=== PATIENT | female | born 1945 | race Caucasian/White ===

== ENCOUNTER → 2016-11-26 | Outpatient (CLI) | payer OTHER ==
[~2016-11-26] MED LIST: ADIPEX-P37.5 M1 PO; AUGMENTIN 875875 MG PO; CELEBREX 200 M200 M1 PO; CELEBREX 200 M200 MG PO; DICLOFENAC SODI75 MG PO; FENTANYL PA12 MCG/HR TP; FENTANYL PA25 MCG/HR TP; FENTANYL PA25 MCG/HR TRANSDERM; FENTANYL PA50 MCG/HR TP; FENTANYL PA50 MCG/HR TRANSDERM; GLUCOSAMINE PO; HYDROCODONE-AP1 EAC6 PO; MEDROLDOSEPACK PO; MOBIC7.5 M1 PO; OXYCODONE HCL 55 MG PO; PHENTERMINE H37.5 MG PO; PROMETHAZINE V180 ML PO; PROZAC40 MG PO; ROXICODONE5 MG PO; WELLBUTRIN SR150 MG PO; WELLBUTRIN XL300 MG PO; ZPAK PO
[2016-11-26 13:58] LABS: ABG SAMPLE TYPE ARTERIAL; BE(vivo) 1.5 mmol/L (-2 to +3); HCO3 25.3 mmol/L (22.0-26.0); LACTATE 0.96 mmol/L (0.5-2.0); O2(CT) 19.1 mL/dL (15.0-23.0); O2Hb 94.8 % (92.0-98.0); PCO2 37.4 mmHg (35.0-45.0); PO2 79.7 mmHg (80.0-100.0); STICK SITE R.RADIAL; pH 7.448 (7.360-7.450); sO2 96.3 % (92.0-98.0); tCO2 26.4 mmol/L (24.0-30.0)
[2016-11-26 13:59] LABS: ABG COMMENT NO COMPLICATIONS.
== END ==
LOC: PUL 13:34
PROVIDERS: Internal Medicine Pulmonary Disease
DX: R06.02 Shortness of breath (principal)

== ENCOUNTER → 2016-12-10 | Outpatient (CLI) | payer OTHER ==
--- NOTE | ~2016-12-10 | SLE ---
[facility] [address] [place] [address] POLYSOMNOGRAPHY STUDY Name: CONCHIS SANTO Room #: REG [facility] M..#: [id number] Admission: 12/10/16 Attend Phys: Jenna Roca MD Discharge: Date of : 47 Report #: [id number] THIS REPORT FOR: //name// CC: Autumn Mitchell MD DATE OF SERVICE: 12/25/2016 A 71-year-old, height 5 feet 3, weight 195 pounds. Usually gets out of bed 47 a.m. goes to bed at 11:00 p.m., positive snoring and daytime somnolence. COMMENTS: SLEEP SUMMARY: Total sleep time 470 minutes. Sleep efficiency 89%. Sleep latency 20 minutes, REM latency 130 minutes. SLEEP STAGE: 1-1%, 2-78, REM-21%. RESPIRATORY SUMMARY: Central apnea 4, obstructive apnea 0, hypopnea 106. Apnea-hypopnea index of 16 events per sleep hour. Supine AHI 27 right lateral 3 events per sleep hour. Periodic limb movement with arousal index of 1.6 events per sleep hour. Low oxygen saturation 83%, spending 2% of recording time less than 90%. IMPRESSION: 1. Obstructive sleep apnea/hypopnea, G47.33. 2. Periodic limb movement with arousal index of 2 events per sleep hour. 3. The patient relates slept better in morning questionnaire further discussion regarding sleep hygiene is recommended. 4. No significant arrhythmia noted. SUGGESTIONS: 1. In addition to specific therapy, the patient should be cautioned regarding driving or operating dangerous machinery unless fully alert. The patient should be cautioned regarding the use of respiratory depressants. 2. TSH and weight loss per Dr. Mitchell. 3. Oral appliance or appropriate surgery may be considered with appropriate followup. 4. A CPAP titration night or if indicated an auto titrating CPAP at home may be considered. 5. If signs and symptoms not improved with therapy, further evaluation recommended. Please do not hesitate to contact me if I may be of further assistance. <ELECTRONICALLY SIGNED> By: Jenna Roca MD 12/29/166 31 47 Jenna Roca MD /nt
== END ==
LOC: SLEEPLAB 08:43
DX: G47.33 Obstructive sleep apnea (adult) (pediatric) (principal)

== ENCOUNTER → 2017-06-09 | Outpatient (CLI) | payer OTHER ==
--- NOTE | ~2017-06-09 | EKG ---
[place] [address] [facility] [place] [address] ELECTROCARDIOGRAM REPORT Name: HANSACONCHIS CARDENAS [id number] Admission: 06/09/17 Attend Phys: Autumn Cade DNP Discharge: Date of : 47 Report #: [id number] THIS REPORT FOR: //name// [facility] Test Date: 2017-06-09 Test Time: 13:30:53 Pat Name: CONCHIS SANTO Department: Room: Gender: [employer] Pl[employer] Technician: Margarito VALVERDE : 1945 Requested By: Autumn Cade Order Number: [id number] MD: Adriel Duenas Measurements Intervals Lund Rate: 78 P: 62 KS: 180 QRS: -34 QRSD: 101 T: 63 QT: 412 QTc: 470 Interpretive Statements Sinus rhythm Left axis deviation Abnormal R-wave progression, early transition No previous ECG available for comparison Electronically Signed On 06-11-2017 6:59:02 CDT by Adriel Duenas [email or web address] <ELECTRONICALLY SIGNED> By: Adriel Duenas MD, [facility] 06/11/17 0659 1330 1330 Adriel Duenas MD, FACC /EPI
== END ==
LOC: CV 13:03
DX: Z01.818 Encounter for other preprocedural examination (principal)

== ENCOUNTER → 2017-09-16 | Outpatient (CLI) | payer OTHER | LOC: RAD 16:45 | DX: M75.91 Shoulder lesion, unspecified, right shoulder (principal) ==

== ENCOUNTER → 2017-10-28 | Outpatient (CLI) | payer OTHER ==
[~2017-10-28] VITALS: Ht 162.6 cm; Wt 97.1 kg
[~2017-10-28] MED LIST changes: +CELEXA40 MG PO; +MYRBETRIQ50 MG PO; +TYLENOL PM EX-1 EACH PO
--- NOTE | ~2017-10-28 | HPC ---
[facility] [address] [place] [address] PAIN MANAGEMENT CONSULTATION Name: CONCHIS SANTO Room #: REG [facility] MFannie.#: [id number] Admission: 10/28/17 Attend Phys: Rl Jasmine DO Discharge: Date of : 47 Report #: [id number] THIS REPORT FOR: //name// CC: Rl WELSH MD DATE OF SERVICE: 10/28/2017 REFERRING PHYSICIAN: Armando Welsh M.D. CHIEF COMPLAINT: Low back pain, left lower extremity pain with paresthesias. HISTORY OF PRESENT ILLNESS: As you know, the patient is a very pleasant 72-year-old female who returns today in followup visit with slowly recurring low back pain, left lower extremity pain with paresthesias. The patient did very well with previous epidural injection reporting 90% improvement in pain lasting for nearly 9 months. She has had a slow and progressive return of symptoms, no inciting injury or trauma. She returns requesting next in a series of epidural injections. ALLERGIES: No known drug allergies. CURRENT MEDICATIONS: Myrbetriq, citalopram, Tylenol PM, celecoxib. SOCIAL HISTORY: The patient denies tobacco, alcohol, IV or illicit drug use. She is retired, retired years ago. She is unaccompanied today. IMAGING: No new imaging available. PHYSICAL EXAMINATION: VITAL SIGNS: Blood pressure 144/80, pulse 73, respiratory rate 16, unlabored. The patient is 95% on room air. Height 5 feet 4 inches tall, weight 214 pounds, BMI calculated 36.7. GENERAL: Well-developed, well-nourished, well-hydrated exogenously obese 72-year-old female appearing her stated age. She is placing current pain score at approximately 4/10. HEENT: Normocephalic, atraumatic. Extraocular muscles appear intact. Prosthetic right eye is noted. EXTREMITIES: Show no clubbing, no cyanosis, no edema. MUSCULOSKELETAL: Seated straight leg raising negative. Supine straight leg raising is positive on the left with S1 distribution. Santi test negative. Modified Gaenslen's positive for axial low back pain. Ankle clonus negative. Babinski is negative. Muscle bulk and tone equal and symmetrical in lower extremities. [address] [address] PAIN MANAGEMENT CONSULTATION Name: CONCHIS SANTO [facility] Room #: REG [facility] Chantell#: [id number] Admission: 10/28/17 Attend Phys: Rl Jasmine DO Discharge: Date of : 47 Report #: [id number] ASSESSMENT: 1. Symptomatic lumbar radiculopathy. 2. Spinal stenosis of the lumbar spine. 3. Neural foraminal stenosis of the lumbar spine. 4. Displacement of lumbar intervertebral disk with radiculopathy. 5. Lumbosacral spondylosis with radiculopathy. 6. Lumbar degeneration. 7. Chronic intractable pain. PLAN: 1. The patient returns today in followup visit having indicated 90% improvement in overall pain for her lumbar radicular symptoms involving the S1 nerve root on the left with previous epidural injection. She returns today requesting next in a series of epidural injections. The patient was advised that third libertarian payer restrictions require that authorization be obtained before she could undergo the next in a series of epidural injections. Authorization could take anywhere from 4-7 working days. We will begin the process immediately, contact the patient once this has been completed, have her return to undergo epidural injection under fluoroscopic guidance as she has noted significant improvement in symptoms. Again, 90% improvement in overall pain with the epidural injection at our last visit lasting for nearly 9 months. She has been able to successfully wean off all opioids after undergoing this epidural injection and had returned to all activities of daily living until just recently where she has slow and progressive return of symptoms. We are hopeful to have the approval of this injection quite quickly, so that she can undergo the procedure and return to her normal activities. 2. No medication changes were made at today's visit. The patient to continue current medical therapy. 3. We will see the patient back in followup visit once we have received precertification to undergo a L5-S1 left paramedian epidural steroid injection under fluoroscopic guidance, which was successful with 90% improvement in overall pain for 9 months at the visit of 09/10/2016. <ELECTRONICALLY SIGNED> By: Rl Jasmine DO 11/05/17 1214 1013 1339 Rl Jasmine DO /nt
[2017-10-28 09:27] VITALS: BP 144/80
== END ==
LOC: PAIN 06:18
DX: M47.27 Other spondylosis with radiculopathy, lumbosacral region (principal); M48.061 Spinal stenosis, lumbar region without neurogenic claudication; M51.16 Intervertebral disc disorders with radiculopathy, lumbar region; G89.4 Chronic pain syndrome; M79.605 Pain in left leg

== ENCOUNTER → 2017-11-12 | Outpatient (CLI) | payer OTHER ==
[~2017-11-12] VITALS: Ht 162.6 cm; Wt 99.8 kg
[~2017-11-12] MED LIST changes: +HYDROCODON-ACE1 EAC7 PO; +LISINOPRIL40 MG PO
--- NOTE | ~2017-11-12 | HPC ---
[facility] [address] [place] [address] PAIN MANAGEMENT CONSULTATION Name: CONCHIS SANTO Room #: REG CLRios MTelmaBirgit.#: [id number] Admission: 11/12/17 Attend Phys: Rl Jasmine DO Discharge: Date of : 47 Report #: [id number] THIS REPORT FOR: //name// CC: Rl Saldana MD DATE OF SERVICE: 11/12/2017 REFERRING PHYSICIAN: Armando Saldana MD CHIEF COMPLAINT: Low back pain, left lower extremity pain and paresthesias. HISTORY OF PRESENT ILLNESS: As you know, the patient is a very pleasant 72-year-old female who returns today in followup visit having received precertification to undergo epidural injection under fluoroscopic guidance to address lumbar radicular symptoms. The patient is placing pain score today 4/10, states pain is aching, numbness and tingling sensation, exacerbated with standing and walking, improves with medications, heat, cold compresses and epidural injections. She returns today in followup visit with preauthorization to undergo epidural injection under fluoroscopic guidance. She denies new injury or new trauma or changes in medical history since our last visit. ALLERGIES: No known drug allergies. CURRENT MEDICATIONS: Myrbetriq, citalopram, Tylenol PM, and celecoxib. SOCIAL HISTORY: The patient denies tobacco, alcohol, IV or illicit drug use. She is retired, retired years ago, unaccompanied today. IMAGING: No new imaging available. PHYSICAL EXAMINATION: VITAL SIGNS: Blood pressure 128/57, pulse 67, respiratory rate 16 and unlabored, the patient is 94% on room air, height 5 feet 4 inches tall, weight 220 pounds, BMI calculated 37.7. GENERAL: Well-developed, well-nourished, well-hydrated, morbidly obese 72-year-old female, appearing stated age, pain is rated around 4/10. HEENT: Normocephalic, atraumatic. Prosthetic right eye noted. Extraocular muscles are intact. Speech is fluent. EXTREMITIES: Show no clubbing, no cyanosis, and no edema. MUSCULOSKELETAL: Seated straight leg raising negative. Supine straight leg raising positive on the left with S1 distribution. Santi's test negative. Modified Gaenslen's positive for axial low back pain. ASSESSMENT: [address] [address] PAIN MANAGEMENT CONSULTATION Name: CONCHIS SANTO THERESA Room #: REG [facility] Abdul#: [id number] Admission: 11/12/17 Attend Phys: Rl Jasmine DO Discharge: Date of : 47 Report #: [id number] 1. Symptomatic lumbar radiculopathy. 2. Spinal stenosis of the lumbar spine. 3. Neural foraminal stenosis of the lumbar spine. 4. Displacement of a lumbar intervertebral disk with radiculopathy. 5. Lumbosacral spondylosis with radiculopathy. 6. Degeneration of lumbar spine. 7. Chronic intractable pain. PLAN: 1. The patient returns today in followup visit having received precertification to undergo epidural injection under fluoroscopic guidance. The patient has done very well with previous epidural injection and hopeful to see similar improvement today. She has been advised the risks and benefits of the procedure, states understood and wished to proceed. 2. No medication changes were made at today's visit. The patient to continue current medical therapy as previously prescribed. 3. The patient to return to our clinic on an as needed basis for possible next in the series of epidural injections under fluoroscopic guidance and to discuss changes in medication therapy if necessary. PROCEDURE NOTE DESCRIPTION OF PROCEDURE: L5-S1 left paramedian epidural steroid injection under fluoroscopic guidance. After obtaining written consent, the patient was taken back to fluoroscopy suite, placed in position with pillow under abdomen to decrease lumbar lordosis. Skin overlying the lumbosacral area then prepped and draped in aseptic fashion. Lumbar intervertebral spaces identified by AP fluoroscopy. Skin and subcutaneous tissue overlying target site of injection was anesthetized with 3 mL of 1% lidocaine. A 20-gauge 4-1/2-inch Tuohy needle advanced under fluoroscopic guidance towards the epidural space using a left paramedian approach. Epidural space identified using loss of resistance to air technique. After negative aspiration for heme or cerebrospinal fluid, 1 mL of Omnipaque was injected. Lumbar epidurogram was confirmed using both AP and lateral fluoroscopy. After negative aspiration for heme or cerebrospinal fluid, 5 mL of a solution containing 2 mL 40 mg per mL, 80 mg total triamcinolone, 3 mL lidocaine 1% injected slowly. Needle retracted group home, needle tract flushed 3 mL 1% lidocaine. Needle removed. Sterile bandage placed over injection site. No new motor deficits present in the lower extremity following procedure. The patient tolerated the procedure well, carefully escorted to the recovery [facility] [address] [place] [address] PAIN MANAGEMENT CONSULTATION Name: CONCHIS SANTO Room #: REG CLI EstellaTelmaBirgitTelma#: [id number] Admission: 11/12/17 Attend Phys: Rl Jasmine DO Discharge: Date of : 47 Report #: [id number] room in stable condition. No apparent complications. After meeting discharge criteria, the patient discharged home. <ELECTRONICALLY SIGNED> By: Rl Jasmine DO 11/14/17 1110 0816 0853 lR Jasmine DO /nt
[2017-11-12 07:39] VITALS: BP 128/57
== END | disposition home or self-care (01) ==
LOC: PAIN 06:32
DX: M51.16 Intervertebral disc disorders with radiculopathy, lumbar region (principal); M47.27 Other spondylosis with radiculopathy, lumbosacral region; G89.29 Other chronic pain; Z79.899 Other long term (current) drug therapy

== ENCOUNTER → 2017-11-28 | Outpatient (CLI) | payer OTHER | LOC: NUC 13:09 | DX: M85.88 Other specified disorders of bone density and structure, other site (principal); M19.90 Unspecified osteoarthritis, unspecified site; E28.8 Other ovarian dysfunction; Z78.0 Asymptomatic menopausal state; Z96.643 Presence of artificial hip joint, bilateral ==

== ENCOUNTER → 2018-08-12 | Outpatient (CLI) | payer OTHER ==
[~2018-08-12] VITALS: Ht 162.6 cm; Wt 95.3 kg
--- NOTE | ~2018-08-12 | HPC ---
[facility] [address] [place] [address] PAIN MANAGEMENT CONSULTATION Name: CONCHIS SANTO THERESA Room #: REG CLRios MFannie.#: [id number] Admission: 08/12/18 Attend Phys: Rl Jasmine DO Discharge: Date of : 47 Report #: [id number] THIS REPORT FOR: //name// CC: Rl Saldana MD DATE OF SERVICE: 08/12/2018 CHIEF COMPLAINT: Bilateral shoulder pain. HISTORY OF PRESENT ILLNESS: As you know, the patient is a 73-year-old female who returns today in followup visit to undergo bilateral intra-articular shoulder injections under fluoroscopic guidance. We saw the patient on 08/05/2018 and provided today's appointment for the patient to undergo bilateral shoulder injections. She is placing pain score 6/10. She is unable to determine which shoulder is causing a greater amount of pain. She denies injury or trauma that may have led to symptom occurrence. She has returned today to undergo bilateral intra-articular shoulder injections under fluoroscopic guidance. ALLERGIES: No known drug allergies. CURRENT MEDICATIONS: Celecoxib 200 mg twice a day, lisinopril 40 mg once a day, citalopram 40 mg per day, acetaminophen extra strength 500 mg 3 times a day. SOCIAL HISTORY: The patient denies tobacco, alcohol, IV or illicit drug use. She is retired, retired years ago, unaccompanied today. PQRS: The patient has osteoarthritis of bilateral shoulders, bilateral hips and knees. She has not been diagnosed with rheumatoid arthritis. She is placing pain intensity of 6/10. She is not a fall risk and has not had a fall in the last 3 months. She is not on blood thinners. She is treated for hypertension. She has not been on opioids for greater than 6 months. She has low opioid addiction potential. Pain impact is 44/70. PHYSICAL EXAMINATION: VITAL SIGNS: Blood pressure 144/63, pulse 76, respiratory rate 16 and unlabored. The patient is 96% on room air. Height 5 feet 4 inches tall, weight 210 pounds, BMI calculated 36.0. GENERAL: Well-developed, well-nourished, and well-hydrated 73-year-old female appearing stated age, placing pain score today 6/10. HEENT: Normocephalic, atraumatic. Extraocular muscles are intact. EXTREMITIES: Show no clubbing, no cyanosis, and no edema. MUSCULOSKELETAL: Active and passive range of motion of bilateral shoulders met with increasing pain. There is limited motion, more on the right than the left. [address] [address] PAIN MANAGEMENT CONSULTATION Name: CONCHIS SANTO THERESA Room #: REG CLRios Abdul#: [id number] Admission: 08/12/18 Attend Phys: Rl Jasmine DO Discharge: Date of : 47 Report #: [id number] There is no noted crepitus with movement. ASSESSMENT: 1. Bilateral shoulder pain. 2. Bilateral shoulder osteoarthritis. 3. Bilateral rotator cuff injuries. 4. Myofascial pain. 5. Chronic intractable pain. PLAN: 1. The patient has returned today in followup visit having made today's appointment to undergo bilateral intra-articular shoulder injections under fluoroscopic guidance. The patient has been experiencing increasing pain in the bilateral shoulders, believed to be due to arthritic changes in the joint, as well as bilateral rotator cuff injuries. She has returned today to undergo this injection in hopes of improving symptoms. I have advised the patient of the risks and benefits of bilateral intra-articular shoulder injections. These risks include, but are not necessarily limited to bleeding, bruising, infection, worsening pain, no relief of pain, also risk of temporary or permanent muscle weakness, temporary or permanent nerve damage, possible joint destruction and . The patient states she understood and wished to proceed. 2. No medication changes made at today's visit. The patient to continue current medical therapy as previously prescribed. 3. We will see the patient back in followup visit on an as needed basis for possible repeat intra-articular shoulder injection. Procedure Note DESCRIPTION OF PROCEDURE: Bilateral intra-articular shoulder injections under fluoroscopic guidance. After obtaining written consent, the patient was taken back to fluoroscopy suite, placed in a supine position. The image intensifier was then placed over the left shoulder and imaging was obtained to confirm positioning of the injection. The area overlying the injection site was then prepped and draped in aseptic fashion. A 27-gauge, 1-1/4-inch needle was then used to anesthetize skin and subcutaneous tissue with 2 mL of 1% lidocaine. A 25-gauge, 2-inch needle was advanced under fluoroscopic guidance towards the proximal head of the humerus under direct visualization. Needle was advanced till reaching the proximal head of the humerus, then retracted approximately 1 mm. After negative aspiration for heme, 0.3 mL of Omnipaque was injected demonstrating excellent left shoulder arthrogram. After negative aspiration for heme, 3 mL of a solution containing, 1 mL 40 mg per mL, 40 mg total triamcinolone, 2 mL bupivacaine 0.5% injected slowly. Needle retracted assisted, flushed with 1 mL of 1% lidocaine and removed. Sterile bandage placed over [address] [address] PAIN MANAGEMENT CONSULTATION Name: CONCHIS SANTO Room #: REG [facility]#: [id number] Admission: 08/12/18 Attend Phys: Rl Jasmine DO Discharge: Date of : 47 Report #: [id number] injection site. Our attention was then directed to the right shoulder where the image intensifier was then placed into position over the right shoulder and neck. AP imaging was obtained. The area was then prepped and draped in aseptic fashion. A sterile marker was then placed over the injection site. A 27-gauge, 1-1/4 inch needle was then used to anesthetize skin and subcutaneous tissue with 2 mL of 1% lidocaine. A 25-gauge, 2-inch needle was then advanced under fluoroscopic guidance to the proximal head of the right humerus. Needle was advanced until reaching the osseous structure then retracted approximately 1 mm and aspiration noted to be negative for heme. Next, 0.3 mL of Omnipaque was injected demonstrating an excellent right shoulder arthrogram. After negative aspiration for heme, 3 mL of a solution containing 1 mL, 40 mg per mL, 40 mg total triamcinolone, 2 mL bupivacaine 0.5% injected slowly. Needle retracted assisted, flushed with 1 mL of 1% lidocaine and removed. Sterile bandage placed over injection site. The patient tolerated procedure well, carefully escorted to recovery room in stable condition. No apparent complications. After meeting discharge criteria, the patient discharged home. <ELECTRONICALLY SIGNED> By: Rl Jasmine DO 08/18/18 1300 0712 0755 Rl Jasmine DO /uriel
[2018-08-12 10:08] VITALS: BP 144/63
== END | disposition home or self-care (01) ==
LOC: PAIN 06:43
DX: M19.011 Primary osteoarthritis, right shoulder (principal); M19.012 Primary osteoarthritis, left shoulder; M79.1 Myalgia; G89.29 Other chronic pain; I10 Essential (primary) hypertension; Z98.890 Other specified postprocedural states; Z79.899 Other long term (current) drug therapy; Z87.891 Personal history of nicotine dependence; Z79.891 Long term (current) use of opiate analgesic

== ENCOUNTER → 2018-10-27 | Outpatient (CLI) | payer OTHER ==
[~2018-10-27] VITALS: Ht 162.6 cm; Wt 97.1 kg
--- NOTE | ~2018-10-27 | HPC ---
[facility] [address] [place] [address] PAIN MANAGEMENT CONSULTATION Name: CONCHIS SANTO THERESA Room #: REG JUANRios Abdul#: [id number] Admission: 10/27/18 Attend Phys: Rl Jasmine DO Discharge: Date of : 47 Report #: [id number] THIS REPORT FOR: //name// CC: Rl Saldana MD DATE OF SERVICE: 10/27/2018 REFERRING PHYSICIAN: Armando Saldana MD CHIEF COMPLAINT: Bilateral shoulder pain. HISTORY OF PRESENT ILLNESS: As you know, the patient is a 73-year-old female who returns today in followup visit with recurrent bilateral shoulder pain. She is requesting to undergo bilateral intra-articular shoulder injections under fluoroscopic guidance. The patient states that she has recently been seen by Orthopedic Surgery to discuss treatment options from a surgical standpoint. The patient indicates that she was advised there is no guarantee that the symptoms will resolve with the surgery, which is fairly typical for surgeon consultations. She continues to notice decreasing function and increasing pain in the bilateral shoulders. We have discussed in the past that we would be willing to provide her intra-articular shoulder injections assuming they remain efficacious and provide good long-term benefit. Once these become less effective, we knight recommend discussions of surgical options. She returns today to undergo bilateral intra-articular shoulder injections to address bilateral shoulder pain due to osteoarthritis and rotator cuff injuries. ALLERGIES: No known drug allergies. CURRENT MEDICATIONS: Celecoxib 200 mg twice a day, citalopram 40 mg per day, lisinopril 40 mg per day, hydrocodone/acetaminophen 5/325 one tab every 6 hours p.r.n. for pain. SOCIAL HISTORY: The patient denies tobacco, alcohol, IV or illicit drug use. She is retired, retired years ago, unaccompanied today. PQRS: The patient has osteoarthritic changes of the bilateral shoulders, bilateral hips, low back and bilateral knees. She has no diagnosis of rheumatoid arthritis. She is placing pain intensity today at level of 5/10. She is not a fall risk, has not had a fall in the last 3 months. She is not on blood thinners. She is not treated for hypertension. She has been on opioids for greater than 6 weeks, but has a low opiate addiction potential. Pain impact score 44/70, indicating a [id number] interference of daily activities secondary to pain. [address] [address] PAIN MANAGEMENT CONSULTATION Name: CONCHIS SANTO THERESA Room #: REG CLRios Abdul#: [id number] Admission: 10/27/18 Attend Phys: Rl Jasmine DO Discharge: Date of : 47 Report #: [id number] PHYSICAL EXAMINATION: VITAL SIGNS: Blood pressure 152/85, pulse 70, respiratory rate 16 and unlabored. The patient is 96% on room air. Height 5 feet 4 inches tall, weight 214 pounds, BMI calculated 36.7. GENERAL: Well-developed, well-nourished, well-hydrated exogenously obese 73-year-old female appearing stated age, placing current pain score at 5/10. HEENT: Normocephalic, atraumatic. Pupils equal, round, reactive to light. Extraocular muscles are intact. Speech remains fluent. EXTREMITIES: Show no clubbing, no cyanosis, no edema. MUSCULOSKELETAL: The patient has palpatory tenderness over the bilateral shoulders, both anterior and posterior. Active and passive range of motion of the shoulders cause increasing pain. There is limited range of motion due to ongoing pain, right greater than left. ASSESSMENT: 1. Bilateral shoulder pain. 2. Bilateral shoulder osteoarthritis. 3. Bilateral rotator cuff injuries. 4. Myofascial pain. 5. Chronic intractable pain. PLAN: 1. The patient returns today in followup visit with recurrent bilateral shoulder pain. She does report good efficacy with the bilateral shoulder injections, but unfortunately, her symptoms have returned. She returns today in followup visit to undergo bilateral intra-articular shoulder injections. She does provide information about recent evaluation by Orthopedics from a surgical standpoint. The patient states that she was advised there were no guarantees of improvement in symptoms, but that she would likely need a fairly extensive surgery on the right and fairly extensive surgery on the left to be able to address her bilateral shoulder issues. At this point, the patient wishes to delay the possibility of undergoing surgery and is requesting bilateral intra-articular shoulder injections. 2. The patient was advised the risks and benefits of bilateral shoulder injections. These risks include but are not necessarily limited to bleeding, bruising, infection, worsening pain, no relief of pain, also risk of temporary or permanent muscle weakness, temporary or permanent nerve damage, possible paralysis, joint destruction and . The patient states understood and wished to proceed. 3. The patient was provided a refill prescription of hydrocodone 5/325 one tab p.o. q. 8 hours p.r.n. for pain. I have given the patient #60 tablets, advised the patient to take the medication only when pain is intolerable, not to rely on the medication prophylactically. 4. We will see the patient back in followup visit in about 2 months for possible bilateral intra-articular shoulder injections assuming efficacy. [address] [address] PAIN MANAGEMENT CONSULTATION Name: CONCHIS SANTO Room #: REG CLRios Abdul#: [id number] Admission: 10/27/18 Attend Phys: Rl Jasmine DO Discharge: Date of : 46 Report #: [id number] PROCEDURE NOTE DESCRIPTION OF PROCEDURE: Bilateral intra-articular shoulder injections under fluoroscopic guidance. After obtaining written consent, the patient was taken back to fluoroscopy suite, placed in supine position. The image intensifier was then placed over the left shoulder and imaging was obtained to confirm positioning of the injection. The area overlying the target site of injection was prepped and draped in aseptic fashion using chlorhexidine. A sterile marker was then placed over the injection site. A 27-gauge 1-1/4 inch needle was then used to anesthetize skin and subcutaneous tissue with 2 mL of 1% lidocaine. A 25-gauge 2-inch needle was advanced under fluoroscopic guidance towards the proximal head of the humerus under direct visualization. Needle was advanced until reaching the proximal head of the humerus. The needle was then retracted approximately 1 mm and aspiration was noted to be negative for heme. 0.3 mL of Omnipaque was injected demonstrating excellent left shoulder arthrogram. After negative aspiration for heme, 3 mL of a solution containing 1 mL 40 mg per mL, 40 mg total triamcinolone and 2 mL bupivacaine 0.5% injected slowly. Needle retracted skilled nursing, flushed with 1 mL of 1% lidocaine and removed. Sterile bandage placed over injection site. The patient was able to move the left upper extremity without any complications after the procedure. Our attention was then directed to the right shoulder where the image intensifier was then placed over the position of the right shoulder. AP imaging was obtained. The area was then prepped and draped in aseptic fashion using chlorhexidine. A sterile marker was then placed on the injection site. Next, a 27-gauge 1-1/4 inch needle was then used to anesthetize skin and subcutaneous tissue with 2 mL of lidocaine 1%. A 25-gauge 2-inch needle was then advanced under fluoroscopic guidance towards the proximal head of the right humerus. Needle was advanced until reaching the osseous structure, then retracted approximately 1 mm. Aspiration noted to be negative for heme at this level. Next, 0.2 mL of Omnipaque was injected demonstrating excellent right shoulder arthrogram. After negative aspiration for heme, 3 mL of a solution containing 1 mL 40 mg per mL, 40 mg total triamcinolone, 2 mL of bupivacaine 0.5% injected slowly. Needle retracted skilled nursing, flushed with 1 mL of 1% lidocaine and removed. Sterile bandage placed over injection site. The patient was able to move right upper extremity purposefully after procedure. The patient tolerated the procedure well, [place] [address] PAIN MANAGEMENT CONSULTATION Name: CONCHIS SANTO Room #: REG SHARMILA Abdul#: [id number] Admission: 10/27/18 Attend Phys: Rl Jasmine DO Discharge: Date of : 46 Report #: [id number] room in stable condition. No apparent complications. After meeting discharge criteria, the patient was discharged home. By: [id number] Rl Jasmine DO /nt
[2018-10-27 10:03] VITALS: BP 152/85
== END | disposition home or self-care (01) ==
LOC: PAIN 09:41
DX: M19.011 Primary osteoarthritis, right shoulder (principal); M19.012 Primary osteoarthritis, left shoulder; S46.001A Unspecified injury of muscle(s) and tendon(s) of the rotator cuff of right shoulder, initial encounter; S46.002A Unspecified injury of muscle(s) and tendon(s) of the rotator cuff of left shoulder, initial encounter; G89.29 Other chronic pain; M79.18 Myalgia, other site; X58.XXXA Exposure to other specified factors, initial encounter; Y93.89 Activity, other specified; Y92.89 Other specified places as the place of occurrence of the external cause; Y99.8 Other external cause status; Z79.891 Long term (current) use of opiate analgesic; Z87.891 Personal history of nicotine dependence; Z79.899 Other long term (current) drug therapy

== ENCOUNTER → 2020-06-28 | Outpatient (CLI) | payer OTHER ==
[~2020-06-28] VITALS: Ht 162.6 cm; Wt 99.5 kg
[~2020-06-28] MED LIST changes: +VENLAFAXINE HC150 M1 PO; +VYZULTA5 ML RT. EYE
--- NOTE | ~2020-06-28 | HPC ---
[facility] [address] [place] [address] PAIN MANAGEMENT CONSULTATION Name: CONCHIS SANTO Room #: REG SHARMILA Adams.#: [id number] Admission: 06/28/20 Attend Phys: Rl Jasmine DO Discharge: Date of : 47 Report #: [id number] THIS REPORT FOR: cc: Autumn Cade DNP, Mary E. DNP Johnson, James E. DO ~ CC: Rl Saldana MD DATE OF SERVICE: 06/28/2020 REFERRING PHYSICIAN: Armando Saldana MD CHIEF COMPLAINT: Low back pain, right greater than left. HISTORY OF PRESENT ILLNESS: As you know, the patient is a pleasant 74-year-old female who has returned today in followup visit with recurrence of low back pain, and right and left lower extremity pain, right greater than left. She indicates no injury or trauma that may have led to symptom reoccurrence. As you are aware, the patient has undergone epidural injections in the past with good efficacy, the most recent was in 2017 where she received benefit for a prolonged period of time. She has had a slow and progressive return of symptoms over the past couple of months, but due to COVID-19 restrictions she avoided coming into the office. She made today's appointment to discuss epidural injection under fluoroscopic guidance to address the 2-8/10 pain depending on activity. She has been referred back to our clinic to undergo the procedure in hopes of improving recurrent lumbar radicular symptoms. ALLERGIES: No known drug allergies. CURRENT MEDICATIONS: See chart. SOCIAL HISTORY: The patient denies tobacco, alcohol, IV or illicit drug use. She is retired, retired years ago. She is unaccompanied today. IMAGING: No new imaging available. PQRS: The patient has known arthritic changes of the bilateral shoulders, bilateral hips, lumbar spine and bilateral knees, no rheumatoid arthritis. She is placing pain intensity anywhere from 2-8/10 depending on activity. She is not a fall risk nor has she had a fall in the last 3 months. She is not on blood thinners, nor she is treated for hypertension. She is not on chronic opioids and has a low opiate addiction potential. Pain impact score 43 of 70 indicating severe interference of daily activities secondary to pain. [address] [address] PAIN MANAGEMENT CONSULTATION Name: CONCHIS SANTO THERESA Room #: REG [facility] Chantell#: [id number] Admission: 06/28/20 Attend Phys: Rl Jasmine DO Discharge: Date of : 47 Report #: [id number] PHYSICAL EXAMINATION: VITAL SIGNS: Blood pressure 158/73, pulse 69, respiratory rate 16 and unlabored. The patient is 95% on room air. Height 5 feet 4 inches tall, weight 219.4 pounds, BMI calculated 37.6. GENERAL: A well-developed, well-nourished, well-hydrated exogenously obese 74-year-old female appearing stated age, placing pain anywhere from 2-8/10 depending on activity. HEENT: Normocephalic. The patient has disconjugate gaze due to previous eye injury. Speech is fluent. She is deemed an excellent historian. EXTREMITIES: Show no clubbing, no cyanosis, no edema. MUSCULOSKELETAL: Lower extremity strength equal and symmetrical, 5/5. She is intact to light touch from L1 through S2 dermatomes. Seated straight leg raising negative. Supine straight leg raising positive on the right. Santi's test is negative. Modified Gaenslen's positive for axial low back pain. ASSESSMENT: 1. Symptomatic lumbar radiculopathy. 2. Lumbosacral spondylosis with radiculopathy. 3. Spinal stenosis of lumbar spine. 4. Neural foraminal stenosis of lumbar spine. 5. Chronic intractable pain. PLAN: 1. The patient returns today in followup visit to undergo lumbar epidural injection under fluoroscopic guidance to address lumbar radiculopathy. The patient has had a slow and progressive return of symptoms over the past couple of months to a level of intolerable. She denies injury or trauma that may have led to symptom development. She had plans to return to our clinic about 2 months ago, but due to COVID-19 and her concerns about being at a hospital during pandemic she avoided our services. She does return today to undergo the next in the series of epidural injections. The patient has been advised risks and benefits of a lumbar epidural injection. These risks include but are not necessarily limited to bleeding, bruising, infection, worsening pain, no relief of pain, risk of temporary or permanent muscle weakness, temporary or permanent nerve damage, possible paralysis and . The patient states understood and wished to proceed. 2. No medication changes made at today's visit. The patient will continue current medical therapy as prior prescribed. 3. We will see the patient back in followup visit on an as needed basis for possible next in the series of lumbar epidural injections. We are hopeful the patient will see good and prolonged benefit with today's epidural injection. PROCEDURE NOTE DESCRIPTION OF PROCEDURE: L5-S1 right paramedian epidural steroid injection [address] [address] PAIN MANAGEMENT CONSULTATION Name: CONCHIS SANTO Room #: REG SHARMILA Abdul#: [id number] Admission: 06/28/20 Attend Phys: Rl Jasmine DO Discharge: Date of : 47 Report #: [id number] under fluoroscopic guidance. After obtaining written consent, the patient was taken back to fluoroscopy suite, placed in prone position with a pillow under abdomen to decrease lumbar lordosis. Skin overlying lumbosacral area then prepped and draped in aseptic fashion. The L5-S1 vertebral interspace was identified by AP fluoroscopy. Skin and subcutaneous tissue overlying target site injection anesthetized with 3 mL of 1% lidocaine. A 20-gauge 3-1/2 inch Tuohy needle advanced under fluoroscopic guidance towards the epidural space using a right parasagittal approach. Epidural space identified using loss of resistance to air technique. After negative aspiration for heme or cerebrospinal fluid, 1 mL of Omnipaque injected. Lumbar epidurogram confirmed using both AP and lateral fluoroscopy. After negative aspiration for heme or cerebrospinal fluid, 5 mL of a solution containing 2 mL 40 mg per mL, 80 mg total triamcinolone along with 3 mL of lidocaine 1% injected slowly. Needle then retracted prison, flushed with 1 mL of 1% lidocaine, then removed. Sterile bandage placed over injection site. No new motor deficits present in lower extremity following procedure. The patient tolerated procedure well, carefully escorted to recovery room in stable condition. No apparent complications. After meeting discharge criteria, the patient discharged home. By: [id number] Rl Jasmine DO /nt
[2020-06-28 13:05] VITALS: BP 158/73
--- NOTE | 2020-06-28 13:18 | NUR ---
Pain Clinic Assessment: 1. History of Osteoarthritis: Left Lower Extremity Right Lower Extremity Right Upper Extremity History of Rheumatoid Arthritis: Not Applicable 2. Height: 5 ft. 4 in. 162.6 cm. Weight: 219.4 lb. oz. 99.519 kg. Patient's BMI: 37.6 3. Vital Signs: BP: 158/73 Pulse: 69 Resp: 16 Temp: 02 Sat: 95 ECG Mon: 4. Pain Intensity: 2-3; 7-8 AT WORST 5. Fall Risk: Dizziness: N Needs help standing or walking: N Fallen in the last 3 months: N Fall risk comments: 6. Patient on Blood Thinner: None 7. History of Hypertension: N 8. Opioid Therapy greater than 6 weeks: N Opiate Contract Signed: 05/07/16 9. Risk Assessment Tool Provided: LOW RISK 11/19 10. Functional Assessment Tool: 11. Recreational Drug Use: Never Drug Type: Tobacco Use: Former Smoker Tobacco Type: Amount or Packs/day: How Many Years: Alcohol Use: Yes Frequency: Special Occasions Quant: COUPLE TIMES WEEKLY
== END | disposition home or self-care (01) ==
LOC: PAIN 06:57
PROVIDERS: ATTEND Anesthesiology Pain Medicine
DX: M47.27 Other spondylosis with radiculopathy, lumbosacral region (principal); M48.061 Spinal stenosis, lumbar region without neurogenic claudication; G89.29 Other chronic pain; M19.90 Unspecified osteoarthritis, unspecified site; Z98.890 Other specified postprocedural states; Z79.899 Other long term (current) drug therapy; Z87.891 Personal history of nicotine dependence

== ENCOUNTER → 2020-07-04 | Outpatient (CLI) | payer OTHER | LOC: SJCVC 13:43 | PROVIDERS: ATTEND Internal Medicine | DX: R94.31 Abnormal electrocardiogram [ECG] [EKG] (principal); R06.09 Other forms of dyspnea; R53.81 Other malaise; R53.83 Other fatigue; G47.33 Obstructive sleep apnea (adult) (pediatric); E78.5 Hyperlipidemia, unspecified ==

== ENCOUNTER → 2020-07-27 | Outpatient (CLI) | payer OTHER | LOC: SJCVCIMAG 08:30 | PROVIDERS: ATTEND Internal Medicine | DX: I07.1 Rheumatic tricuspid insufficiency (principal); I27.20 Pulmonary hypertension, unspecified; R53.83 Other fatigue; R53.81 Other malaise; R00.0 Tachycardia, unspecified; G47.33 Obstructive sleep apnea (adult) (pediatric); F41.9 Anxiety disorder, unspecified; M19.90 Unspecified osteoarthritis, unspecified site; E66.9 Obesity, unspecified; Z87.891 Personal history of nicotine dependence; Z79.899 Other long term (current) drug therapy ==